=== PATIENT | female | born 1975 | race Caucasian/White ===

== ENCOUNTER 2020-06-30 08:55 | Emergency (ER) | payer OTHER ==
--- NOTE | 2020-06-30 09:02 | NUR ---
PATIENT LEFT WITHOUT BEING TRIAGED . NO FURTHER CARE PROVIDED FOR PATIENT.
== END 2020-06-30 09:02 | disposition left against medical advice (07) ==
LOC: MED 08:55
DX: Z53.21 Procedure and treatment not carried out due to patient leaving prior to being seen by health care provider (principal)

== ENCOUNTER 2022-03-08 07:50 | Emergency (ER) | payer OTHER ==
[~2022-03-08] VITALS: Ht 167.6 cm; Wt 108.9 kg
[2022-03-08 07:50] VITALS: BP 148/88
--- NOTE | 2022-03-08 12:15 | NUR ---
PT TAKEN TO BED 8. AMBULATED WITH STEADY GAIT. PT REFUSED TO CHANGE INTO GOWN AT THIS TIME.
--- NOTE | 2022-03-08 12:44 | NUR ---
MD BOATENG AT BEDSIDE FOR EVALUATION
--- NOTE | 2022-03-08 13:00 | NUR ---
46YO FEMALE PT C/O R LEG SWELLING AND PAIN X3DAYS. STATES GOING TO URGENT CARE LASTNIGHT AND TOLD SHE COULD HAVE BLOOD CLOT. LEG PRESENTS WITH MILD SWELLING, TENDER TO TOUCH. AMBULATORY W/ STEADY GAIT. DENIES N/V/D , CHEST PAIN OR SOB. PT AAOX4, NO VISIBLE DISTRESS. RSPIRATOINS EVEN AND UNLABORED. HX: DIABETES, HTN NKA
[2022-03-08] MEDS ORDERED: CEPH-588 PO (14:19)
[2022-03-08 14:50] VITALS: BP 120/65
--- NOTE | 2022-03-08 14:50 | NUR ---
Patient discharged with v/s stable. Written and verbal after care instructions FOR CELLULITIS AND EDEMA given and explained. Patient alert, oriented and verbalized understanding of instructions. Ambulatory with steady gait. All questions addressed prior to discharge. ID band removed. Patient advised to follow up with PMD. Rx of KELFEX given. . Opportunity to ask questions provided and answered.
--- NOTE | 2022-03-08 14:51 | NUR ---
Chart checked and completed. The patient's care was reviewed and supervised by Edith Saleh RN.
== END 2022-03-08 14:50 | disposition home or self-care (01) ==
LOC: MED 07:50
DX: R60.0 Localized edema (principal); M79.604 Pain in right leg; E11.9 Type 2 diabetes mellitus without complications; F12.90 Cannabis use, unspecified, uncomplicated; E66.9 Obesity, unspecified; Z68.38 Body mass index [BMI] 38.0-38.9, adult; Z88.5 Allergy status to narcotic agent; Z79.899 Other long term (current) drug therapy
CPT/HCPCS: 93971; 99284; Q0092